=== PATIENT | female | born 1990 | race Two or more races ===

== ENCOUNTER 2019-02-02 17:47 | Observation (INO) | payer MEDICAID, OTHER ==
[~2019-02-02] VITALS: Ht 152.4 cm; Wt 78.5 kg
[2019-02-02 18:06] VITALS: BP 117/75
[2019-02-02 19:55] LABS: Urine WBC None Seen /hpf (0 - 5)
[2019-02-02] MEDS ORDERED: PREN-129 OR (20:08)
[2019-02-02 20:11] LABS: Urine Bacteria NONE SEEN /hpf (None Seen); Urine Blood Negative /uL (Negative); Urine Hyaline Cast FEW /lpf (0 - 2)
[2019-02-02 20:23] LABS: Alcohol, Urine < 3.0 mg/dL (0-5); Amphetamine Screen, Urine NEGATIVE (NEGATIVE); Barbiturate Scree,Urine NEGATIVE (NEGATIVE); Benzodiazephine Screen, Urine NEGATIVE (NEGATIVE); Cannabinoid Screen, Urine NEGATIVE (NEGATIVE); Cocaine Screen, Urine NEGATIVE (NEGATIVE); Opiate Scree,Urine NEGATIVE (NEGATIVE); Phencyclidine Screen, Urine NEGATIVE (NEGATIVE)
== END 2019-02-02 22:35 | disposition home or self-care (01) | DRG 566 ==
LOC: ER 17:52 → LDRP 18:37 → ER 18:39 → LDRP 18:43
PROVIDERS: ADMIT Specialist; ATTEND Specialist
DX: O26.892 Other specified pregnancy related conditions, second trimester (principal); M25.552 Pain in left hip; R10.30 Lower abdominal pain, unspecified; W18.2XXA Fall in (into) shower or empty bathtub, initial encounter; Y93.89 Activity, other specified; Y92.009 Unspecified place in unspecified non-institutional (private) residence as the place of occurrence of the external cause
CPT/HCPCS: 59025; 76805; 80307; 81001; 81002; 99284; G0378

== ENCOUNTER 2024-12-29 18:52 | Emergency (ER) | payer MEDICAID ==
[~2024-12-29] VITALS: Ht 152.4 cm; Wt 88.3 kg
[~2024-12-29 18:52] MED LIST: PREN-129 OR
[2024-12-29 19:20] VITALS: BP 113/70; PULSE 75; RESP 18; TEMP 97.8; O2SAT 98
--- NOTE | 2024-12-29 20:23 | ED.PDOC ---
Eye-HPI HPI Comments 34 year old female presents to ER with complaints left eye complaint x 2 months. Patient with PMH significant for DM and Migraines states she has been experiencing blurred vision to left eye with associated intermittent left sided headaches x 2 months. States she followed up with a neurologist at onset of symptoms and was referred to an molding fitter but states her ophthalmology appointment is not until April 27. Notes she followed up with the same neurologist again today and was referred to come to ER for further evaluation. She denies any current pain and presents to ER ambulatory on arrival, alert and oriented x4, with steady gait, in no distress. Denies eye pain, visual floaters/further visual changes, head injury, n/v, worsening symptoms over 2 months, weakness or any further symptoms/complaints Chief Complaint: Eye Problem Time Seen by MD: 18:59 Primary Care Provider: YARELI Reviewed Notes: Nurses Notes, Medications, Allergies Allergies: Coded Allergies: NO KNOWN ALLERGIES (Unverified , 02/02/19) Home Meds Reported Medications Vit W/ Ferrous Fumara () Tab, 1 OR, TAB 02/02/19 Information Source: Patient Mode of Arrival: Ambulatory Past Medical History PAST MEDICAL HISTORY: DM Past Medical History (Other): Migraines Surgical History: Denies all surgeries DISTRIBUTION SALES REPRESENTATIVE History: No Pertinent DISTRIBUTION SALES REPRESENTATIVE History Family History Family History: Unknown Social History Smoker: Non-Smoker Alcohol: Denies ETOH Use Drugs: Denies Drug Use Lives In: Home Constitutional: denies: chills, diaphoresis, fatigue, fever, malaise, sweats, w eakness, others EENTM: reports: others (As stated in HPI) Respiratory: denies: cough, hemoptysis, orthopnea, SOB at rest, shortness of breath, SOB with excertion, stridor, wheezing, others Cardiovascular: denies: chest pain, dizzy spells, diaphoresis, Dyspnea on exertion, edema, irregular heart beat, left arm pain, lightheadedness, palpitations, PND, syncope, others Gastrointestinal: denies: abdomen distended, abdominal pain, blood streaked bowels, constipated, diarrhea, dysphagia, difficulty swallowing, hematemesis, melena, nausea, poor appetite, poor fluid intake, rectal bleeding, rectal pain, vomiting, others Genitourinary: denies: abnormal vagina bleeding, burning, dyspareunia, dysuria, flank pain, frequency, hematuria, incontinence, pain, , vagina discharge, urgency, others Neurological: reports: others (As stated in HPI) Musculoskeletal: denies: back pain, gout, joint pain, joint swelling, muscle pain, muscle stiffness, neck pain, others Integumetry: denies: bruises, change in color, change in hair/nails, dryness, laceration, lesions, lumps, rash, wounds, others Allergic/Immunocompromised: denies: Difficulty Healing, Frequent Infections, Hives, Itching, others Hematologic/Lymphatic: denies: anemia, blood clots, easy bleeding, easy bruising, swollen glands, others Endocrine: denies: excessive hunger, excessive sweating, excessive thirst, excessive urination, flushing, intolerance to cold, intolerance to heat, unexplained weight gain, unexplained weight loss, others Psychiatric: denies: anxiety, bipolar disorder, depression, hopeless, panic disorder, schizophrenia, sleepless, suicidal, others Physical Exam General Appearance: No Apparent Distress, Obese HEENT: Normal ENT Inspection, PERRL/EOMI, Pharynx Normal, TMs Normal, Other (Visual acuity left eye- 20/50, Visual acuity right eye- 20/40, Visual acuity using both eyes- 20/30) Neck: Full Range of Motion, Non-Tender, Normal Respiratory: Chest Non-Tender, Lungs Clear, No Accessory Muscle Use, No Respiratory Distress, Normal Breath Sounds Cardiovascular: No Murmur, No Gallop, Regular Rate/Rhythm Breast Exam: Deferred Gastrointestinal: NOT DONE Genitalia: Deferred Pelvic: Deferred Rectal: Deferred Extremities: Normal capillary refill, Normal range of motion Neurologic: Alert, sales engagement executive II-XII nml as Tested, No Motor Deficits, Normal Affect, Normal Mood, No Sensory Deficits Cerebellar Function: Normal Reflexes: Normal Skin: Dry, Normal Color, Warm Lymphatic: No Adenopathy Was a procedure done? Was a procedure done?: No Sedation Sedation?: No EENT DIFF Eye: Glaucoma, Globe Rupture, Retinal Artery Occlusion, Retinal Vein Occlusion Other Differential Diagnosis CVA X-Ray, Labs, Meds, VS Vital Signs Date Time Temp Pulse Resp B/P (MAP) Pulse Ox O2 Delivery O2 Flow Rate FiO2 12/29/24 19:20 97.8 75 18 113/70 (84) 98 97.8 12/29/24 19:20 98 Room Air* 0 21 12/29/24 18:58 97.8 75 18 113/70 (84) 98 97.8 Lab Test 12/29/24 20:27 Range/Units White Blood Count 6.8 4.4-10.8 10^3/uL Red Blood Count 5.02 4.0-5.20 10^6/uL Hemoglobin 14.2 12.2-16.2 g/dL Hematocrit 43.4 36.0-46.0 % Mean Corpuscular Volume 86.6 80.0-100.0 fL Mean Corpuscular Hemoglobin 28.2 28.0-32.0 pg Mean Corpuscular Hemoglobin Concent 32.6 32.0-36.0 g/dL Red Cell Distribution Width 14.7 H 11.8-14.3 % Platelet Count 152 140-450 10^3/uL Mean Platelet Volume 8.7 6.9-10.8 fL Neutrophils (%) (Auto) 56.1 37.0-80.0 % Lymphocytes (%) (Auto) 35.4 10.0-50.0 % Monocytes (%) (Auto) 6.3 0.0-12.0 % Eosinophils (%) (Auto) 1.4 0.0-7.0 % Basophils (%) (Auto) 0.8 0.0-2.0 % Neutrophils # (Auto) 3.8 1.6-8.6 10 ^3/uL Lymphocytes # (Auto) 2.4 0.4-5.4 10 ^3/uL Monocytes # (Auto) 0.4 0-1.3 10 ^3/uL Eosinophils # (Auto) 0.1 0-0.8 10 ^3/uL Basophils # (Auto) 0.1 0-0.2 10 ^3/uL Nucleated Red Blood Cells 0.1 % Sodium Level 141 136-145 mmol/L Potassium Level 4.3 3.5-5.1 mmol/L Chloride Level 109 H 98-107 mmol/L Carbon Dioxide Level 24 20-31 mmol/L Anion Gap 8 5-15 Blood Urea Nitrogen 17 9-23 mg/dL Creatinine 0.66 0.550-1.02 mg/dL Glomerular Filtration Rate Calc 118 >90 mL/min BUN/Creatinine Ratio 25.8 H 10.0-20.0 Serum Glucose 84 74-106 mg/dL Calcium Level 9.5 8.7-10.4 mg/dL PATIENT: BENJY BAIAACCT: [id number]: [id number] : 1990 LOC: ER ROOM / BED: / AGE / SEX: 34 / F ADM STATUS: REG ER SERVICE 06 ORDERING PHYSICIAN: INESSA PEREZ PROCEDURE(s): OB1CT - ORBITS WO CONTRAST REASON: left eye pain/blurred vision to left eye ORDER NUMBER(s): [id number], ACCESSION NUMBER(s): [id number] CT ORBITS WITHOUT CONTRAST: HISTORY: left eye pain/blurred vision to left eye COMPARISON: None TECHNIQUE: Axial CT images obtained of the orbital region. Coronal and Sagittal reformatted images provided. Dose reduction technique was used on this scan by utilizing automated exposure control, adjustment of the mA and/or kV according to the patient size. DICOM format image data available to non-affiliated external healthcare facilities or entities on a secure, media free, reciprocally searchable basis with patient authorization for at least a 12 month period after the study. FINDINGS: Globes: Globes appear intact. No evidence of intraocular hemorrhage or lens dislocation. Bony Orbits: Orbital bones appear intact without evidence of fracture. Pre-septal soft tissues: No preseptal soft tissue swelling Optic Nerves: Optic nerves appear normal. Muscles and Lacrimal fossa: Extraocular muscles, lacrimal gland and fossa are normal. Paranasal sinuses: Paranasal sinuses are clear. Mastoid air cells are clear. IMPRESSION: 1. No acute findings to explain patient's left orbital pain ATED BY: SOLE STEARNS MD DICTATED DATE/TIME: 12/29/242040 SIGNED BY: SOLE STEARNS MD SIGNED DATE/TIME: 12/29/242040 CC: PATIENT: UYEN BAI ACCT: [id number] UNIT: [id number] : 1990 LOC: ER ROOM / BED: / AGE / SEX: 34 / F ADM STATUS: REG ER SERVICE 06 ORDERING PHYSICIAN: INESSA PEREZ PROCEDURE(s): HWOCT - HEAD WITHOUT CONTRAST REASON: headache ORDER NUMBER(s): [id number], ACCESSION NUMBER(s): [id number] CT BRAIN WITHOUT CONTRAST HISTORY: headache TECHNIQUE: Axial scans were obtained from the skull base through the vertex without contrast. Sagittal and coronal reformats were generated. One or more of the following radiation dose reduction techniques were used for this examination: automated exposure control, adjustment of the mA and/or kV according to patient size, use of iterative reconstruction technique. COMPARISON: None FINDINGS: No acute intracranial hemorrhage or evidence of large vessel territorial infarction identified at this time. No midline shift. The basilar cisterns are patent. Kramer-white differentiation appears relatively preserved. The visualized paranasal sinuses and mastoid air cells are clear. No grossly displaced calvarial abnormalities identified. IMPRESSION: No acute intracranial findings. If symptoms persist, follow-up MRI may be considered to further evaluate. ATED BY: RUDI DA SILVA MD DICTATED DATE/TIME: 12/29/242039 SIGNED BY: RUDI DA SILVA MD SIGNED DATE/TIME: 12/29/242039 CC: waiver signed CT head without contrast reviewed CT orbit without contrast reviewed CBC reviewed without any significant abnormalities BMP reviewed without any significant abnormalities Patient denied any pain or worsening symptoms during ER visit/prior to discharge Advised to follow up with Ophthalmology as soon as possible Advised to follow up with PCP in 1-2 days Patient alert and oriented x4 prior to discharge. Patient verbalized understanding and agreeable with current plan of care Advised to return to ER immediately if symptoms worsen Time of 1ST Reevaluation: 20:14 Reevaluation 1ST: N/A Patient Education/Counseling: Diagnosis, Treatment, Prognosis, Need For Follow Up Family Education/Counseling: No Family Present SEPSIS Sepsis Screen Date sepsis recognized/suspect: Dec 29, 2024 Time Sepsis recognized/suspect: 1857 Recent Procedure: No On Antibiotic Therapy: No Respiratory Rate >20: No Heart Rate >90: No Temp<36 C (96.8 F) or >38.3 C: No SBP <90 or MAP <65 mmHG: No New Acute Mental Status Change: No Is the patient on CPAP, BIPAP,: No Physician Orders Head Without Contrast (12/29/24 20:07) Orbits Wo Contrast (12/29/24 20:07) Vital Signs Date Time Temp Pulse Resp B/P (MAP) Pulse Ox O2 Delivery O2 Flow Rate FiO2 12/29/24 19:20 97.8 75 18 113/70 (84) 98 97.8 12/29/24 19:20 98 Room Air* 0 21 12/29/24 18:58 97.8 75 18 113/70 (84) 98 97.8 Laboratory Tests Test 12/29/24 20:27 White Blood Count 6.8 10^3/uL (4.4-10.8) Departure 1 Departure Time of Disposition: 20:52 Impression: Primary Impression: Migraine Qualified Codes: G43.909 - Migraine, unspecified, not intractable, without status migrainosus Additional Impression: Decreased vision in both eyes Disposition: 01 HOME / SELF CARE / HOMELESS Condition: Stable Discharged With: Friend Critical Care Note Critical Care Time?: No Stability Stability form required: No Heart Score Heart Score: Heart Score Response (Comments) Value History N/A 0 EKG N/A 0 Age N/A 0 Risk Factors N/A 0 Troponin N/A 0 Total 0 INESSA PEREZ Dec 29, 2024 20:23
[2024-12-29 20:40] LABS: Basophils # (auto) 0.1 10 ^3/uL (0-0.2); Basophils % (auto) 0.8 % (0.0-2.0); Eosinophils # (auto) 0.1 10 ^3/uL (0-0.8); Eosinophils % (auto) 1.4 % (0.0-7.0); Hematocrit 43.4 % (36.0-46.0); Hemoglobin 14.2 g/dL (12.2-16.2); Lymphocytes # (auto) 2.4 10 ^3/uL (0.4-5.4); Lymphocytes % (auto) 35.4 % (10.0-50.0); Mean Corpuscular Hemoglobin 28.2 pg (28.0-32.0); Mean Corpuscular Hgb Conc. 32.6 g/dL (32.0-36.0); Mean Corpuscular Volume 86.6 fL (80.0-100.0); Monocytes # (auto) 0.4 10 ^3/uL (0-1.3); Monocytes % (auto) 6.3 % (0.0-12.0); Neutrophils # (auto) 3.8 10 ^3/uL (1.6-8.6); Neutrophils % (auto) 56.1 % (37.0-80.0); Nucleated Red Blood Cells % 0.1 %; Platelet Count (auto) 152 10^3/uL (140-450); Red Blood Cells 5.02 10^6/uL (4.0-5.20); Red Cell Distribution Width 14.7 % (11.8-14.3); White Blood Cell 6.8 10^3/uL (4.4-10.8)
--- NOTE | 2024-12-29 20:43 | DVH ---
CT ORBITS WITHOUT CONTRAST: HISTORY: left eye pain/blurred vision to left eye COMPARISON: None TECHNIQUE: Axial CT images obtained of the orbital region. Coronal and Sagittal reformatted images pr ovided. Dose reduction technique was used on this scan by utilizing automated exposure control, adju stment of the mA and/or kV according to the patient size. DICOM format image data available to non- filiated external healthcare facilities or entities on a secure, media free, reciprocally searchable basis with patient authorization for at least a 12 month period after the study. FINDINGS: Globes: Globes appear intact. No evidence of intraocular hemorrhage or lens dislocation. Bony Orbits: Orbital bones appear intact without evidence of fracture. Pre-septal soft tissues: No preseptal soft tissue swelling Optic Nerves: Optic nerves appear normal. Muscles and Lacrimal fossa: Extraocular muscles, lacrimal gland and fossa are normal. Paranasal sinuses: Paranasal sinuses are clear. Mastoid air cells are clear. IMPRESSION: 1. No acute findings to explain patient's left orbital pain
--- NOTE | 2024-12-29 20:43 | DVH ---
CT BRAIN WITHOUT CONTRAST HISTORY: headache TECHNIQUE: Axial scans were obtained from the skull base through the vertex without contrast. Sagitta l and coronal reformats were generated. One or more of the following radiation dose reduction techniq ues were used for this examination: automated exposure control, adjustment of the mA and/or kV accord ing to patient size, use of iterative reconstruction technique. COMPARISON: None FINDINGS: No acute intracranial hemorrhage or evidence of large vessel territorial infarction identified at thi s time. No midline shift. The basilar cisterns are patent. Kramer-white differentiation appears relat ively preserved. The visualized paranasal sinuses and mastoid air cells are clear. No grossly displaced calvarial abno rmalities identified. IMPRESSION: No acute intracranial findings. If symptoms persist, follow-up MRI may be considered to further evalu ate.
[2024-12-29 20:50] LABS: Potassium 4.3 mmol/L (3.5-5.1); Sodium 141 mmol/L (136-145)
[2024-12-29 20:51] LABS: Anion Gap 8 (5-15); Calcium 9.5 mg/dL (8.7-10.4); Carbon Dioxide 24 mmol/L (20-31)
[2024-12-29 20:56] LABS: BUN/Creatinine Ratio 25.8 (10.0-20.0); Blood Urea Nitrogen 17 mg/dL (9-23); Glucose 84 mg/dL (74-106)
[2024-12-29 21:38] LABS: Chloride 109 mmol/L (98-107)
== END 2024-12-29 22:02 | disposition home or self-care (01) ==
LOC: ER 19:01
DX: G43.909 Migraine, unspecified, not intractable, without status migrainosus (principal); H53.8 Other visual disturbances; E11.9 Type 2 diabetes mellitus without complications
CPT/HCPCS: 36415; 70450; 70480; 80048; 85025